=== PATIENT | male | born 1990 | race Two or more races ===

== ENCOUNTER 2023-05-29 10:29 | Emergency (ER) | payer MEDICAID ==
[~2023-05-29] VITALS: Ht 180.3 cm; Wt 95.0 kg
[2023-05-29 10:36] VITALS: BP 122/86; PULSE 80; RESP 18; O2SAT 96
[2023-05-29] MEDS ORDERED: ketorolac trometh inj. 60 MG/2 ML VIAL IM ONE (10:45)
[2023-05-29] MEDS ORDERED: ondansetron 4mg rapidly disintigrating tab PO ONE (10:45)
[2023-05-29] MEDS ORDERED: ketorolac tromethamine 15mg/ml inj. IM ONE (10:45)
--- NOTE | 2023-05-29 11:46 | NUR ---
Discharge instructions given to the at bedside. Patient walked out of the room when I attempted to give discharge instructions. Patient then came back to his room to tell me that he wanted an IV. I reminded him that he is discharged. Charge nurse Maxine aware of this. Patient has refused an IV prior to coming here. IM Toradol given and zofran PO at earlier time.
[2023-05-29] MEDS ORDERED: NAPR-1154 PO (12:23)
[2023-05-29] MEDS ORDERED: ONDA8TAB13 PO (12:23)
--- NOTE | 2023-05-29 12:24 | NUR ---
Dr. Nava went to patient's room, talked to the patient and at bedside
== END 2023-05-29 12:31 | disposition home or self-care (01) ==
LOC: ER 10:30
DX: R51.9 Headache, unspecified (principal); R11.2 Nausea with vomiting, unspecified; F12.90 Cannabis use, unspecified, uncomplicated; Z79.899 Other long term (current) drug therapy
CPT/HCPCS: 96372; 99283; J1885